=== PATIENT | female | born 1970 | race Caucasian/White ===

== ENCOUNTER 2025-06-26 01:25 | Emergency (ER) | payer MEDICARE ==
[~2025-06-26] VITALS: Ht 162.6 cm; Wt 90.0 kg
[2025-06-26 01:37] VITALS: O2SAT 98
[2025-06-26 02:23] LABS: CLARITY URINE CLEAR (CLEAR); COLOR URINE YELLOW (YELLOW); GLUCOSE URINE NEGATIVE (NEGATIVE); KETONES URINE NEGATIVE (NEGATIVE); LEUKOCYTE ESTERASE URINE 3+ (NEGATIVE); NITRITE URINE NEGATIVE (NEGATIVE); OCCULT BLOOD URINE NEGATIVE (NEGATIVE); PH URINE 5.5 (4.5-8.0); PROTEIN URINE NEGATIVE (NEGATIVE); SPECIFIC GRAVITY URINE 1.010 (1.005-1.030); UROBILINOGEN URINE 0.2 E.U./dL (0.2-1.0)
[2025-06-26] MEDS ORDERED: CEPH500C2 MT (02:34)
[2025-06-26 04:53] LABS: BACTERIA URINE TRACE; RBC URINE 0-2 /hpf (0-2); SQUAMOUS EPITHELIAL CELL URINE 1+ /lpf (RARE/1+)
[2025-06-26 05:55] VITALS: BP 106/51; PULSE 79; RESP 14; TEMP 36.8; O2SAT 96
[2025-06-26] MEDS ORDERED: KETO10TA2 MT (11:06)
[2025-06-26] MEDS ORDERED: CYCL10TA21 MT (11:06)
== END 2025-06-26 06:50 | disposition home or self-care (01) ==
LOC: ER 01:25
DX: R35.0 Frequency of micturition (principal); F17.200 Nicotine dependence, unspecified, uncomplicated; Z87.440 Personal history of urinary (tract) infections
CPT/HCPCS: 81003; 99283

== ENCOUNTER 2025-06-26 09:43 | Emergency (ER) | payer MEDICARE ==
[~2025-06-26] VITALS: Ht 167.6 cm; Wt 100.0 kg
[~2025-06-26 09:43] MED LIST: CEPH500C2 MT
[2025-06-26 09:58] VITALS: O2SAT 99
[2025-06-26] MEDS ORDERED: CYCL10TA21 MT (11:06)
[2025-06-26] MEDS ORDERED: KETO10TA2 MT (11:06)
[2025-06-26] MEDS: CYCLOBENZAPRINE 10MG TABLET PO ONE (11:41)
[2025-06-26] MEDS: KETOROLAC 15MG/ML VIAL IM ONE (11:41)
[2025-06-26 11:43] VITALS: BP 112/69; PULSE 88; RESP 18; TEMP 36.9; O2SAT 99
== END 2025-06-26 13:35 | disposition home or self-care (01) ==
LOC: ER 09:43
DX: M25.571 Pain in right ankle and joints of right foot (principal); M25.572 Pain in left ankle and joints of left foot; E78.00 Pure hypercholesterolemia, unspecified; Z98.890 Other specified postprocedural states
CPT/HCPCS: 99283; 81025; 96372; J1885